=== PATIENT | female | born 1990 | race American Indian/Alaskan Native ===

== ENCOUNTER 2020-12-29 02:40 | Emergency (ER) | payer SELFPAY ==
[2020-12-29 02:52] VITALS: BP 122/94
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
== END 2020-12-29 08:30 | disposition home or self-care (01) ==
LOC: ED 02:40
DX: K11.21 Acute sialoadenitis (principal); K11.5 Sialolithiasis; J45.909 Unspecified asthma, uncomplicated
CPT/HCPCS: 99281